=== PATIENT | female | born 1965 | race Caucasian/White ===

== ENCOUNTER 2022-01-25 18:21 | Emergency (ER) | payer BC, SELFPAY ==
[2022-01-25 19:10] VITALS: BP 123/72; PULSE 77; RESP 18; TEMP 36.7; O2SAT 99; BMI 23.8
[2022-01-25 19:21] LABS: Apearance,Urine Clear (Clear); Bilirubin,Urine Negative (Negative); Blood, Urine Trace (Negative); Color,Urine Yellow (Yellow); Glucose,Urine (UA) Negative (Negative); Ketones,Urine Negative (Negative); Protein,Urine Negative (Negative); Specific Gravity, Urine <= 1.005 (1.005-1.030); UTC Leukocyte Esterase,Urine Trace (Negative); UTC Nitrate,Urine Negative (Negative); Urobilinogen,Urine 0.2 EU/dl (0.2)
--- NOTE | 2022-01-25 19:34 | HMH.EDUTC ---
[facility] [place] Clinical Impression: UTI (urinary tract infection) Qualifiers: Urinary tract infection type: site unspecified Hematuria presence: with hematuria Qualified Code(s): N39.0 - Urinary tract infection, site not specified; R31.9 - Hematuria, unspecified Disposition: Home, Self-Care Condition on Discharge: Good Instructions: DI for Urinary Tract Infection (UTI), Urinary Tract Infection, Phenazopyridine Additional Instructions: *Increase fluids. Water not Soda or Tea *Start antibiotic immediately and be sure to take as ordered for the FULL length of time although you should start to see improvement over the next 48 hours *Pyridium as needed Remember this medication will turn your urine [place]. This is normal but it will stain what ever it gets on *You should not use Pyridium for more than 48 hours. If so , follow up with your primary physician to review urine culture and ensure that antibiotic is adequate for infection *Be SURE to follow up anytime for new or worsening symptoms with your family doctor. AND in 48 hours for urine culture results with your family doctor, if you do not have a doctor then you may call back to the [facility] for urine culture results and further treatment. We do recommend that you choose and establish care with a Primary Care Physician. AND follow up with them in 10-14 days to repeat UA to ensure infection is resolved and blood no longer present *Be sure to let your PCP know that we sent urine cultures from the [facility] so they can follow up to ensure that you area the on the correct antibiotic Call your doctor office and make appointment for 48 hours (2 days from today) to follow up and get the results of your urine culture and further treatment Prescriptions: cephALEXin [cephALEXin 500mg capsule*] 500 mg PO Q12H 7 Days #14 cap Transmission Status: Pending to [facility] # Phenazopyridine HCl [Pyridium] 100 mg PO Q12H 2 Days #4 tab Transmission Status: Pending to [facility] # Referrals: Kristan Queen MD [Primary Care Provider] - As needed Time of Disposition: 19:51 Medical Decision Making - Brian Inquiry Pt receiving controlled substance: No Brian was queried for this patient: No Vital Signs: 01/25/22 19:10 Temperature 98.1 F Temperature Source Oral Pulse Rate [Right Brachial] 77 Respiratory Rate 18 Blood Pressure [Right Arm] 123/72 Blood Pressure Mean [Right Arm] 89 Blood Pressure Source [Right Arm] Automatic Cuff Blood Pressure Position [Right Arm] Sitting 02 Sat by Pulse Oximetry 99 Oxygen Delivery Method Room Air - Lab Data Lab results reviewed: Yes: I reviewed the patient's lab results. Lab Results 01/25/22 19:19: Urine Color Yellow, Urine Appearance Clear, Urine pH 6.0, Ur Specific [place] <= 1.005, Urine Protein Negative, Urine Glucose (UA) Negative, Urine Ketones Negative, Urine Blood Trace, Urine Nitrate Negative, Urine Bilirubin Negative, Urine Urobilinogen 0.2, Ur Leukocyte Esterase Trace Orders (Tests/Meds): ORDERS Category Date Time Status Urine Culture Stat Micro 01/25/22 19:07 Received Medical Decision Narrative: medication discussed and dosed per pharmacy [facility] [place] - General Stated complaint: possible bladder or kidney infection Time Seen by Provider: 01/25/22 19:35 Mode of Arrival: Ambulatory Source of Information: Patient Limitations: No Limitations Description of Symptoms (Recalled from Triage Doc. by RN): PATIENT C/O POSSIBLE UTI HEENT Symptoms (Recalled from RN notes): No Resp Symptoms (Recalled from RN notes): No Skin Symptoms (Recalled from RN notes): No MS Symptoms (Recalled from RN notes): No Functional Status (Recalled from RN notes): WNL - History of Present Illness Provider Complaint: Patient states that she was seen and treated for UTI by her PCP about a week ago States that she has finished her medication and the symptoms returned and they are worse than before so she came in to get checked - Rela
[2022-01-25 19:56] VITALS: BP 123/72; PULSE 77; RESP 18; TEMP 36.7; O2SAT 99
== END 2022-01-25 19:59 | disposition home or self-care (01) ==
PROVIDERS: Emergency Provider Nurse Practitioner; PCP Family Medicine
DX: N39.0 Urinary tract infection, site not specified (principal); R31.9 Hematuria, unspecified; Z88.1 Allergy status to other antibiotic agents
CPT/HCPCS: 81003; 87086; 99212; G0463

== ENCOUNTER → 2022-07-25 15:02 | Outpatient (POV) | payer BC, SELFPAY | PROVIDERS: Visit Provider Dermatology | DX: Z00.00 Encounter for general adult medical examination without abnormal findings (principal) ==

== ENCOUNTER 2024-07-12 15:58 | Emergency (ER) | payer OTHER, SELFPAY ==
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
--- OUTSIDE RECORDS SUMMARY | 2024-07-12 16:03 | XMS_ITS | Clinical Summary ---
Author Organization [facility] , [facility] Address [address] [place] [address] Phone Care Team Providers Care Drying Unit Felting Machine Operator Name Role Phone Lg Medellin MD Unavailable [phone] Reason for Visit and Chief Complaint INJECTION Problems Includes: Problems addressed during this encounter and other active Problems All Visits Onset Date Resolved Date Provider Condition S tatus Joint Pain in the Left Hip 08/09/2023 Manuel Winn PA-C Active Last Documented On 3 8:20AM ; [facility] Plan of Treatment No Plan of Treatment Recorded Assessments Includes: Assessments from this encounter No Assessments Recorded Medical Equipment - Implanted Devices Includes: Current Devices No Medical Equipment Recorded Medications Includes: Medications discussed during this encounter and other current Medications Current Medications (continue as prescribed) Dutasteride 0.5 MG Oral Capsule 08/01/2023 Provider: Diagnosis: Last Documented On 3 12:38PM By Elizabeth Hannon [facility] Lisinopril 10 MG Oral Tablet 07/17/2023 Provider: Diagnosis: Last Documented On 3 12:38PM By Elizabeth Hannon [facility] Doxycycline Hyclate 20 MG Oral Tablet 06/20/2023 Pro vider: Diagnosis: Last Documented On 3 12:38PM By Elizabeth Schmitz ; [facility], [facility] Medications Administered Includes: Administered Medications from this encounter No Administered Medications Recorded Results Includes: Results discussed during this encounter No Results Recorded For Specified Dates History of Present Illness Includes: History of Present Illness from this encounter No History of Present Illness Recorded Social History No Social History Recorded - Smoking Status Unknown Procedures and Surgical History Includes: Procedures from this encounter Procedures Code Diagnosis Performing Provider Service Location Service Date DRAIN/INJECT, JOINT/BURSA (LEFT) Unilateral primary osteoarthritis, left hip Anshu Castle PA-C [facility] 09/06/2023 Last Documented On 3 9:01AM ; [facility] Injection, betamethasone acetate 6mg per cc and betamethason [id number] Unilateral primary osteoarthritis, left hip Anshu Castle PA-C [facility] 09/06/2023 Last Documented On 3 9:01AM ; [facility] OMIPAQUE [id number] Unilateral prima ry osteoarthritis, left hip Anshu Castle PA-C [facility] 09/06/2023 Last Documented On 3 9:01AM ; [facility] Fluoroscopic guidance for needle placement (Distinct procedure) [id number] Unilateral primary osteoarthritis, left hip Anshu Castle PA-C [facility] 09/06/2023 Last Documented On 3 9:01AM ; [facility] Medical History Includes: Medical History addressed during this encounter No Medical History Recorded Family History Includes: Family History addressed during this encounter No Family History Recorded Review of Systems Includes: Review of Systems from this encounter No Review of Systems Recorded Mental Status Includes: Mental Status from this encounter No Mental Status Recorded Functional Status Includes: Functional Status from this encounter No Functional Status Recorded Physical Exam Includes: Physical Exam from this encounter Allergies Includes: Active Allergies Substance Type Reaction Onset Date Resolved Date Statu s Erythromycin Base Allergy 08/09/2023 A ctive Last Documented On 3 12:40PM ; [facility] Encounters Encounter Provider Location Date Check-In Time Check-Out Time Diagnosis INJECTION Anshu Castle PA-C [facility] 09/06/20 23 2:19PM 2:48PM Insurance Includes: Active Insurance Policies Plan Name Member ID Group # Subscriber Relationship Effect eddie Dates 1 - [employer] [id number] Maria Kelly Self Clinical Notes Includes: Clinical Notes from this encounter * Progress note Date Encounter Last Documented by 09/06/2023 INJECTION Last documented on 09/07/2023; 8:09 AM, Anshu Castle PA-C; [facility], [facility] Physical Findings HPI: Left hip pain, DJD. Risks and benefits were explained to the patient and they gave consent to proceed. Timeout procedure was performed confirming correct patient, procedure, and site of injection. Physical exam: Patient alert and oriented. Skin over anterior left hip is clean and dry. No redness or rash Procedure: Left hip steroid injection under fluoroscopy: The patient was brought to the fluoroscopic suite and informed of the risks and benefits of the procedure. The patient gave consent and elected to proceed. The overlying skin was cleaned and prepped in the usual sterile fashion with chlorhexadine. Fluoroscopy was utilized to guide a 3-1/2 inch 22-gauge spinal needle over the midline femoral neck. A small amount of iodinated contrast was injected confirming intra-articular placement. Subsequently an injection of 2 mL of betamethasone, 2 mL lidocaine, and 2 mL Marcaine was injected. The patient tolerated the procedure well and there were no complications. Follow-up: The patient was seen by myself, Anshu Castle PA-C Electronically signed RAVI Galvez Notes This dictation was done with voice recognition software and may contain errors and omissions.
--- OUTSIDE RECORDS SUMMARY | 2024-07-12 16:03 | XMS_ITS ---
Care Plan - [facility], [facility] Created on: July 12, 2024 Maria Kelly : 1965 Sex: Female Author Organization [facility], [facility] Address [address] [place] [address] Phone Care Team Providers Care Bookstore Clerk Name Role Phone Lacie OLVERA, Lg Ayers Unavailable [phone]
--- OUTSIDE RECORDS SUMMARY | 2024-07-12 16:03 | XMS_ITS ---
Author Organization [facility] , [facility] Address [address] [place] [address] Phone Care Team Providers Care Real Estate Analyst Name Role Phone Lg Medellin MD Unavailable [phone] Problems Includes: Active, inactive, and resolved Problems All Visits Onset Date Resolved Date Provider Condition S tatus Joint Pain in the Left Hip 08/09/2023 Manuel Winn PA-C Active Last Documented On 3 8:20AM ; [facility], [facility] Plan of Treatment No Plan of Treatment Recorded Assessments Includes: Assessments for all patient encounters No Assessments Recorded Medical Equipment - Implanted Devices Includes: Current and historical Devices No Medical Equipment Recorded Medications Includes: Current and historical Medications Current Medications (continue as prescribed) Dutasteride 0.5 MG Oral Capsule 08/01/2023 Provider: Diagnosis: Last Documented On 3 12:38PM By Elizabeth Schmitz ; [facility] Lisinopril 10 MG Oral Tablet 07/17/2023 Provider: Diagnosis: Last Documented On 3 12:38PM By Elizabeth Hannon [facility], [facility] Doxycycline Hyclate 20 MG Oral Tablet 06/20/2023 Pro vider: Diagnosis: Last Documented On 3 12:38PM By Elizabeth Schmitz ; [facility], [facility] Medications Administered Includes: Administered Medications in patient's chart No Administered Medications Recorded Vital Signs Includes: Vital Signs from 07/12/2023 through 07/12/2024 Vital Name 08/09/2023 08:52A Height (in) 66 Weight (lb) 148 Body Mass Index 23.9 Body Surface Area 1.8 Note: bdf Last Documented: On 08/09/2023 8:53AM ; [facility], [facility] Results Includes: Results from 07/12/2023 through 07/12/2024 No Results Recorded For Specified Dates History of Present Illness History of Present Illness not supported for this document type No History of Present Illness Recorded Social History Description Last Updated Alcohol use 08/09/2023 Last Documented On 3 3:16PM ; [facility], [facility] Caffeine use 08/09/2023 Last Documented On 3 3:16PM ; [facility], [facility] Tobacco non-user 08/09/2023 Last Documented On 3 3:16PM ; [facility], [facility] No recent change in diet 08/09/2023 Last Documented On 3 3:16PM ; [facility], [facility] Not a current smoker. 08/09/2023 Last Documented On 3 3:16PM ; [facility], [facility] Not exercising regularly 08/09/2023 Last Documented On 3 3:16PM ; [facility], [facility] Not using drugs 08/09/2023 Last Documented On 3 3:16PM ; [facility], [facility] Smoking Status Unknown Procedures and Surgical History Includes: Procedures from 07/12/2023 through 07/12/2024 Procedures Code Diagnosis Performing Provider Service Location Service Date DRAIN/INJECT, JOINT/BURSA (LEFT) Unilateral primary osteoarthritis, left hip Anshu Castle PA-C [facility] 09/06/2023 Last Documented On 3 9:01AM ; [facility], [facility] Injection, betamethasone acetate 6mg per cc and betamethason [id number] Unilateral primary osteoarthritis, left hip Anshu Castle PA-C [facility] 09/06/2023 Last Documented On 3 9:01AM [facility] Unilateral prima ry osteoarthritis, left hip Anshu Castle PA-C [facility] 09/06/2023 Last Documented On 3 9:01AM ; [facility] Fluoroscopic guidance for needle placement (Distinct procedure) 09707 Unilateral primary osteoarthritis, left hip Anshu Castle PA-C [facility] 09/06/2023 Last Documented On 3 9:01AM ; [facility] AP PELVIS w/ 1 VIEW HIP (LEFT) 36286 Unilateral primary osteoarthritis, left hip Manuel Winn PA-C [facility] 08/09/2023 Last Documented On 3 12:16PM ; [facility] Surgical History Last Updated Past Surgical History: tubiligation 07/25 Last Documented On 3 3:16PM ; [facility] Medical History Includes: Medical History in patient's chart Description Last Updated History of arthritis 08/09/2023 Last Documented On 3 3:16PM ; [facility] History of Heart Attack 08/09/2023 Last Documented On 3 3:16PM ; [facility] History of Stroke 08/09/2023 Last Documented On 3 3:16PM ; [facility] Family History Includes: Family History in patient's chart Description Last Updated Diabetes mellitus 08/09/2023 Last Documented On 3 3:16PM ; [facility] Family history of cancer 08/09/2023 Last Documented On 3 3:16PM ; [facility] Family history of heart disease 08/09/20 Last Documented On 3 3:16PM ; [facility] Review of Systems Review of Systems not supported for this document type No Review of Systems Recorded Mental Status No Mental Status Recorded Functional Status No Functional Status Recorded Physical Exam Physical Exam not supported for this document type No Physical Exam Recorded Allergies Includes: Active, inactive, and resolved Allergies Substance Type Reaction Onset Date Resolved Date Statu s Erythromycin Base Allergy 08/09/2023 A ctive Last Documented On 3 12:40PM ; [facility], [facility] Encounters Includes: Encounters from 07/12/2023 through 07/12/2024 Encounter Provider Location Date Check-In Time Check-Out Time Diagnosis INJECTION Anshu Castle PA-C [facility] 09/06/20 2:19PM 2:48PM Physician Specified Manuel Winn PA-C [facility] 08/09/20 8:25AM 9:17AM Insurance Includes: Active Insurance Policies Plan Name Member ID Group # Subscriber Relationship Effect eddie Dates - AE [id number] Maria Kelly Self Clinical Notes Includes: Signed Clinical Notes starting from 09/07/2022 * Progress note Date Encounter Last Documented by 09/06/2023 INJECTION Last documented on 09/07/2023; 8:09 AM, Anshu Castle PA-C; [facility] Physical Findings HPI: Left hip pain, DJD. [...] software and may contain errors and omissions. * Progress note Date Encounter Last Documented by 08/09/2023 Physician Specified Norman michael on 09/07/2023; 3:16 PM, Manuel Winn PA-C; [facility], [facility] Active Problems & Conditions - [...] for reevaluation. Gave option to see our communications specialist prior to hip injection however patient thought hip injection was a good idea Notes This dictation was done with voice recognition software and may contain errors and omissions. Practice Management Use of tobacco assessment performed Review of medications documented.
[2024-07-12 16:13] VITALS: BP 132/72; PULSE 75; RESP 18; TEMP 37.1; O2SAT 97; BMI 24.0
--- NOTE | 2024-07-12 16:20 | ED_ITS ---
Discharge Plan Prescriptions Prescriptions: No Action phenazopyridine 100 MG tablet 100 mg PO Q12H 2 Days Qty: 4 0RF cephalexin 500 MG capsule 500 mg PO Q12H 7 Days Qty: 14 0RF lisinopril 10 mg tablet 10 mg PO DAILY Patient Comments: TAKE 1 TABLET BY MOUTH DAILY Referrals Follow up/Referrals: Provider,Referral, MD [Primary Care Provider] - See instructions Activity Restrictions/Add. Instructions Additional Instructions/Restrictions: If symptoms worsen or do not improve return Follow-up with primary care Clinical Impressions Clinical Impression: Cerumen impaction, Foreign body Instructions Patient Instructions: DI for Cerumen Impaction, DI for Removal of Foreign Body From Ear Print Language Print Language: Haitian Discharge ED [facility] HPI General Stated complaint: ear pain Mode of Arrival: Ambulatory Source of Information: Patient Time Seen by Provider: 07/12/24 16:20 Description of Symptoms (Recalled from Triage Doc. by RN): POSSIBLE BUG IN EAR HEENT Symptoms (Recalled from RN notes): Yes Resp Symptoms (Recalled from RN notes): No Skin Symptoms (Recalled from RN notes): No MS Symptoms (Recalled from RN notes): No Functional Status (Recalled from RN notes): WNL History of Present Illness Provider Complaint: 59-year-old female presents for pain in the left ear. Patient states she felt a bug fly into her ear and not sure if the blood came out. Related Data Home Medications ?Medication ?Instructions ?Recorded ?Confirmed lisinopril 10 mg tablet 10 mg PO DAILY 07/12/24 07/12/24 Previous Rx's ?Medication ?Instructions ?Recorded cephalexin 500 mg capsule 500 mg PO Q12H 7 days #14 caps 01/25/22 phenazopyridine 100 mg tablet 100 mg PO Q12H 2 days #4 tabs 01/25/22 Allergies Allergy/AdvReac Type Severity Reaction Status Date / Time erythromycin base Allergy Verified 01/25/22 19:41 Worker's Comp Is this a Worker's Comp case?: No [facility] Disclaimer: The information contained in this section may have been updated after the patient was seen, as this information can be updated by other users. Social History , CERTIFIED PROCEDURAL CODER) Smoking Status: Never smoker alcohol intake: never current occupational status: employed Travel in the last 8 weeks: None ROS Obtained: Yes Systems reviewed as appropriate & no additional complaints except as documented ENT Ears, Nose, Mouth, and Throat: Reports system reviewed and no additional complaints, except as documented, Reports as per HPI and Reports otalgia Physical Exam General General appearance: alert and in no apparent distress Eye Eye exam: Present normal appearance ENT ENT exam: Present normal oropharynx and mucous membranes moist Expanded ENT Exam TM/Canal exam: Left TM: cerumen impaction (unable to see due to wax) Respiratory Respiratory exam: Present normal lung sounds bilaterally Cardiovascular Cardiovascular exam: Present regular rate and normal rhythm Neurological Exam Neurological exam: Present alert and oriented X3 Medical Decision Making Medical Records Medical records reviewed: Yes I reviewed the patient's medical records. Screening: Per USPSTF and CDC recommendations, given the prevalence of disease in our region, it is our hospital?s policy to screen for HIV and viral Hepatitis for all patients aged 18 and over and those with ongoing risk factors. MR Comment: Once the ears were flushed was able to visualize no insect present Brian Inquiry Pt receiving controlled substance: No Brian was queried for this patient: No Vital Signs: 07/12/24 16:13 Temperature 98.7 F Temperature Source Oral Pulse Rate [Left Brachial] 75 Respiratory Rate 18 Blood Pressure [Left Arm] 132/72 Blood Pressure Mean [Left Arm] 92 02 Sat by Pulse Oximetry 97
[2024-07-12 16:28] VITALS: BP 132/72; PULSE 75; RESP 18; TEMP 37.1
== END 2024-07-12 16:31 | disposition home or self-care (01) ==
LOC: UTC 16:02
PROVIDERS: Emergency Provider Nurse Practitioner Family
DX: H61.20 Impacted cerumen, unspecified ear (principal)
CPT/HCPCS: 99213; G0381